=== PATIENT | male | born 1985 | race Caucasian/White ===

== ENCOUNTER → 2018-12-31 06:45 | Outpatient (CLI) | payer OTHER, SELFPAY ==
[2018-12-22 20:46] VITALS: BMI 44.8
--- NOTE | 2018-12-31 06:53 | CT_ITS ---
STUDY: CT ABDOMEN WITHOUT CONTRAST REASON FOR EXAM: Male, 33 years old. Intermittent stabbing and burning pain in periumbilical area. RADIATION DOSAGE (If Supplied By Facility): CTDIvol = ( 24.18 ) mGy, DLP = ( 957.23 ) mGycm TECHNIQUE: Transaxial images were obtained without intravenous contrast, and oral contrast. Sagittal and coronal images were reconstructed. Individualized dose optimization techniques were used for this CT. COMPARISON: None. FINDINGS: The visualized lung bases are unremarkable. The visualized portions of the heart are within normal limits. There are a few scattered punctate calcifications in the liver. Hepatic steatosis. Normal gallbladder and extrahepatic biliary system. There are multiple benign calcified granulomata of the spleen. Normal pancreas. Normal bilateral adrenal glands. Normal right kidney. Normal left kidney. Limited evaluation of solid organs without contrast. Limited evaluation of bowel without oral contrast. Normal visualized stomach. Normal small intestine. Normal colon. The appendix is visualized axial image 77, coronal image 78 and sagittal image 43 and appears normal. Normal abdominal aorta. Normal inferior vena cava. Normal retroperitoneum. No intra-abdominal free air. Small umbilical hernia containing fat. Normal abdominal wall. Mild degenerative changes of the thoracic spine. CT/Abdomen without IV Contrast IMPRESSION: No acute findings in the abdomen . No evidence of bowel obstruction. Fatty liver. Old granulomatous disease. Small umbilical hernia containing fat. Electronically Signed: Daryl Nguyen MD at 8:08 EDT , Service support ,
== END ==
PROVIDERS: Family Provider Nurse Practitioner; PCP Nurse Practitioner; Referring Provider Nurse Practitioner; Visit Provider Nurse Practitioner
DX: K43.9 Ventral hernia without obstruction or gangrene (principal); R10.33 Periumbilical pain
CPT/HCPCS: 74150

== ENCOUNTER → 2019-12-09 21:18 | Outpatient (CLI) | payer SELFPAY ==
[2019-12-09 20:05] VITALS: BMI 44.5
[2019-12-09 21:52] LABS: ALB/GLOB Ratio 1.1 RATIO (0.9-2.4); AST(SGOT) 33 U/L (15-37); Alanine Aminotransfer ALT/SGPT 82 U/L (16-61); Albumin, Serum 3.9 g/dL (3.2-5.0); Alkaline Phosphatase 72 U/L (45-117); Anion Gap 6 (5-15); BUN 16 mg/dL (7-18); BUN/Creat Ratio 13.4 RATIO (10-20); CRP, High Sensitivity Cardiac 8.43 mg/L; Calcium,Total 8.6 mg/dL (8.5-10.1); Chloride 104 mmol/L (98-107); Creatinine, Serum 1.19 mg/dL (0.70-1.30); EST Glomerular Filtration Rate 73 mL/min (>60); Est Glom Filt Rate - Afr Amer 89 mL/min (>60); Globulin 3.6 g/dL (2.2-4.2); Glucose 114 mg/dL (74-106); Potassium 3.7 mmol/L (3.5-5.1); Protein, Total 7.5 g/dL (6.4-8.2); Sodium Level 138 mmol/L (136-145)
== END ==
PROVIDERS: PCP Nurse Practitioner; Visit Provider Nurse Practitioner
DX: R07.9 Chest pain, unspecified (principal)
CPT/HCPCS: 80053; 84484; 86141

== ENCOUNTER 2019-12-14 10:45 | Observation (INO) | payer OTHER, SELFPAY ==
[2019-12-09 20:05] VITALS: BMI 44.5
[2019-12-14] VITALS (10 sets, daily range): BP systolic 122–160; BP diastolic 59–87; PULSE 55–80; RESP 16–20; TEMP 36.6–36.8; O2SAT 95–98; BMI 44.5; BMI 43.6
--- NOTE | 2019-12-14 11:01 | EKG12_ITS ---
Test Reason : SYNCOPE Blood Pressure : / mmHG Vent. Rate : 067 BPM Atrial Rate : 067 BPM P-R Int : 142 ms QRS Dur : 088 ms QT Int : 386 ms P-R-T Axes : 035 042 017 degrees QTc Int : 407 ms Normal sinus rhythm Normal ECG Confirmed by LILIANA ROSS ([id number]), website/blog editor BOBBI MANZANARES ([id number]) on 12/17/2019 10:30:13 AM Referred By: GIRMA Confirmed By:LILIANA ROSS
--- NOTE | 2019-12-14 11:01 | ED.VIS.GEN ---
History of Present Illness Chief Complaint: Syncope Narrative: This patient is a 34-year-old male who presents after a near syncopal episode. He has been having episodes of left-sided chest and arm pain. He saw his primary care provider. He had an EKG and laboratory studies with a negative troponin. He was referred to cardiology. These episodes of pain have been happening for about 2 weeks. Today he developed burning left arm pain as well as left-sided chest pain. He became very dizzy and had a near syncopal event. He became diaphoretic. He did feel slightly short of breath. He has been having nausea over the last couple of weeks. No vomiting. He is recovered from COVID-19 about 2 months ago. Patient denies history of diabetes, hypertension, hyperlipidemia, smoking. Past Medical History - Allergies and Home Meds Allergies/Adverse Reactions: Allergies No Known Allergies Allergy (Verified 12/14/19 10:48) Primary Care Physician: Priscilla Adams NP-C [Primary Care Provider] - Past Medical History: - - GERD Smoking Status: Never smoker Review of Systems All systems negative except as indicated General: Denies: Fever Eyes: Denies: Visual changes - bilaterally ENT: Denies: Bilateral ear pain Cardiovascular: Reports: Chest pain, - - Near syncope Respiratory: Reports: Dyspnea Gastrointestinal: Reports: Nausea Musculoskeletal: Reports: Extremity Pain. Denies: Myalgias, Arthralgias Skin: Denies: Rash Neurological: Denies: Headache Allergy: Denies: Uticaria Physical Exam Vital Signs/Narrative: Vital Signs Temp Pulse Resp BP Pulse Ox 12/14/19 10:46 97.8 F 71 20 H 160/87 H 97 Inital Vital Signs reviewed: Yes General: Well nourished Head: Normocephalic Eyes: EOMI ENT: Moist mucous membranes Neck: Supple Cardiovascular: Regular rate, Regular rhythm Respiratory: No distress, CTA bilaterally Abdomen: Soft, Nontender Back: Nontender Extremities: Nontender Skin: Normal color Neurological: Alert Psychological: Normal affect Diagnostic/Tx/Re-eval Impressions Chest X-Ray 12/14/19 11:40 IMPRESSION: Normal x-ray examination of the chest. Electronically Signed: Brady Tomas, at 11:54 EDT , Service support , 12/14/19 11:40 Chest PA and Lateral [RAD] Stat Laboratory Results 12/14/19 12/14/19 11:25 11:25 WBC 8.7 RBC 5.03 Hgb 15.3 Hct 44.2 MCV 87.9 MCH 30.4 MCHC 34.6 RDW Std Deviation 40.0 RDW Coeff of Richard 12.5 Plt Count 246 MPV 11.0 Immature Gran % (Auto) 0.200 Neut % (Auto) 68.4 Lymph % (Auto) 21.9 [place] % (Auto) 7.7 Eos % (Auto) 1.3 Baso % (Auto) 0.5 Absolute Neuts (auto) 6.0 Absolute Lymphs (auto) 1.91 Nucleated RBC % 0 Sodium 141 Potassium 3.9 Chloride 110 H Carbon Dioxide 27.0 Anion Gap 4 L BUN 11 Creatinine 1.00 Estim Creat Clear Calc 98.80 Est GFR (MDRD) Af Amer 109 Est GFR (MDRD) Non-Af 90 BUN/Creatinine Ratio 11.0 Glucose 98 Calcium 8.6 Troponin I < 0.015 - Medical Decision Making EKG shows normal sinus rhythm at a rate of 67 with no acute ischemic changes. Labs are unremarkable. Chest x-ray shows no acute process. Heart score is 3. However I am concerned about the patient's progressive symptoms. He has already begun an outpatient work-up and been referred to cardiology. Therefore I felt the most appropriate course of action was hospital observation for serial EKGs, troponins, stress testing. Patient was discussed with the hospitalist who agrees to place in observation. ED Disposition - Plan for ED Patient: Disposition: Acute Care Hospital [facility] Diagnosis: Chest pain, Near syncope Referrals: Priscilla Adams, YUAN-C [Primary Care Provider] -
--- NOTE | 2019-12-14 11:04 | NURSING ---
NO OLD EKGS
[2019-12-14 11:33] LABS: Absolute Lymphocyte Count 1.91 X10^3/uL (0.83-4.51); Basophil# 0.04 X10^3/uL; Basophil% 0.5 % (0-1); Eosinophil# 0.11 X10^3/uL; Eosinophils% 1.3 % (0-5); Hematocrit 44.2 % (40-54); Hemoglobin 15.3 g/dL (13.0-16.5); Lymphocyte # 1.91 X10^3/ul (4.0); Lymphocyte % 21.9 % (19-41); Mean Corp Hgb Conc 34.6 g/dL (32-36); Mean Corpuscular Hgb 30.4 pg (27.0-32.0); Mean Corpuscular Volume 87.9 fL (80-94); Monocyte# 0.67 X10^3/uL; Monocyte% 7.7 % (0-10); NRBC Flagged by Analyzer 0 % (0-5); Neutrophil # 5.97 X10^3/uL (2.7-7.7); Neutrophil % 68.4 % (47-70); Platelet Count 246 K/mm3 (150-450); RBC Distribution Width CV 12.5 % (11.6-14.6); Red Blood Count 5.03 M/mm3 (4.6-6.2); White Blood Count 8.7 K/mm3 (4.4-11.0)
[2019-12-14] MEDS: Aspirin 81 MG TAB.CHEW 324 MG PO (11:37)
[2019-12-14] MEDS: 0.9% Normal Saline 1,000 ML 1000 ML IV (11:39)
--- NOTE | 2019-12-14 11:40 | RAD_ITS ---
STUDY: X-RAY CHEST REASON FOR EXAM: Male, 34 years old. Pt felt like he was going to pass out and became diaphoretic. Pt also having l arm pain. Pt has cardiology followups soon TECHNIQUE: PA and lateral views of the chest. COMPARISON: None. FINDINGS: EKG electrodes are seen. The lungs are clear and expanded. There is no demonstrated pleural abnormality. Normal size heart. Normal mediastinum and miley. Normal visualized pulmonary arteries. Normal visualized aortic arch and descending thoracic aorta. Normal visualized thoracic spine. Normal visualized ribs, clavicles, and shoulders. There is no demonstrated abnormality of the visualized soft tissue structures of the upper abdomen. RAD/Chest PA and Lateral IMPRESSION: Normal x-ray examination of the chest. Electronically Signed: Brady Tomas, at 11:54 EDT , Service support ,
[2019-12-14 11:53] LABS: Anion Gap 4 (5-15); BUN 11 mg/dL (7-18); Calcium,Total 8.6 mg/dL (8.5-10.1); Chloride 110 mmol/L (98-107); EST Glomerular Filtration Rate 90 mL/min (>60); Est Glom Filt Rate - Afr Amer 109 mL/min (>60); Glucose 98 mg/dL (74-106); Potassium 3.9 mmol/L (3.5-5.1); Sodium Level 141 mmol/L (136-145)
--- NOTE | 2019-12-14 14:21 | PCM.HP.STD ---
Problem List (1) Atypical chest pain Status: Acute (2) Near syncope Status: Acute History of Present Illness Date of Admission: 12/14/19 Chief Complaint: Dizziness, near syncope. The patient is a 34 year old M with no significant past medical history presented to the emergency department because of dizziness. 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 He denied aggravating or relieving factors. Almost at the same time, he started having vague left upper chest pain, dull pain, mild, associated with same pain on the left arm and the whole episode of being dizzy and having this chest pain lasted for about 2 minutes. Upon arrival to the ED, he had no more symptoms. Few days ago, he saw his PCP, had an EKG and troponin which were unremarkable and he was referred to cardiology as outpatient. Patient was diagnosed COVID- beginning of October and he was recovered. Patient denied syncope or palpitation. In the emergency department, his blood pressure was slight elevated, other vital signs were stable. Routine blood work was unremarkable. EKG revealed normal sinus rhythm, normal [place] interval, normal QRS, no acute ischemic changes. Troponin is negative. Chest x-ray showed no acute findings. He is being admitted for near syncope and atypical chest pain for evaluation. Past Medical History Medical History: Medical History (Last Updated 01/07/19 @ 08:50 by Citlali Proctor) GERD (gastroesophageal reflux disease) K21.9 Umbilical hernia K42.9 Chronic back pain M54.9, G89.29 Allergies No Known Allergies Allergy (Verified 12/14/19 10:48) Home Medications: Ambulatory Orders Medication Instructions Recorded Aspirin [Aspirin, Baby] 81 mg PO DAILY@0800 12/14/19 Surgical History: Surgical History (Last Updated 01/07/19 @ 08:50 by Citlali Proctor) No pertinent past surgical history Z78.9 Surgical History: no surgical history Psychiatric History: No pertinent psych hx Lives: Spouse/ Significant Other Smoking Status: Never smoker Tobacco Use: Chew Alcohol: Occasional Drugs: None - *Family History Maternal Family History: Family History (Last Reviewed 12/14/19 @ 14:[address] Emely Dixon MD) Mother Myocardial infarction Heart disease Grandfather Sudden cardiac Heart disease Father Seizures Other Asthma Hypertension History Items: Heart Disease - Pacemaker, ICD. She had her first heart problem at the age of 50. Had no PCI or CABG. Paternal Family History: Family History (Last Reviewed 12/14/19 @ 14:[address] Emely Dixon MD) Mother Myocardial infarction Heart disease Grandfather Sudden cardiac Heart disease Father Seizures Other Asthma Hypertension History Items: Hypertension Review of Systems Constitutional: Denies: Anorexia, Chills, Fever, Weakness Eyes: Denies: Blurred vision, Double vision, Drainage HEENT: Denies: Difficulty Hearing, Ear Pain, Eye Pain, Nasal Congestion, Sore Throat Cardiovascular: Reports: Chest Pain, Light Headedness. Denies: Edema, Heaviness, Orthopnea, Paroxysmal Noc. Dyspnea, Syncope Respiratory: Reports: Shortness of Breath. Denies: Cough, Pleuritic Pain, Sputum production, Wheezing Gastrointestinal: Reports: Nausea. Denies: Abdominal Pain, Constipation, Diarrhea, Vomiting Genitourinary: Denies: Dysuria, Frequency, Hematuria Musculoskeletal: Denies: Arm Pain, Back Pain, Foot Pain Skin: Denies: Dryness, Rash Neurological: Denies: Balance problems, Double vision, Change in Speech, Confusion, Headaches, Incoordination, Numbness Psychiatric: Denies: Anxiety, Depression Endocrine: Denies: Change in Body Habitus, Polydipsia, Polyuria VTE Information - Inpt Only VTE Present on Admission: No VTE Mechan Device Prophylaxis: None VTE Pharm Prophylaxis ordered?: No Patient Problems: Active and Suspected Problems (Last Updated 01/07/19 @ 08:50 by Citlali Proctor) Atypical chest pain (Acute) Near syncope (Acute) - Physical Exam Vitals/I&O's: Vital Signs Temp Pulse Resp BP Pulse Ox 97.8 F 61 18 140/86 H 98 12/14/19 10:46 12/14/19 12:45 12/14/19 12:45 12/14/19 12:45 12/14/19 12:45 Oxygen Delivery Method Room Air Weight: 293 lb Body Mass Index (BMI) 44.5 General: Alert, Oriented x3, Cooperative, No apparent distress HEENT: Atraumatic, PERRLA, EOMI, Normocephalic Oral: Moist Mucosa, No Gingival or Mucosal Lesions/ Ulcerations Neck: Supple, No JVD, Negative Carotid Bruits, Trachea Midline, Thyroid Normal Size and Texture Lungs: Clear to auscultation, Normal air movement, No rhonchi, No wheeze, No rales Cardiovascular: Regular rate, Regular Rhythm, Normal S1, Normal S2, PMI Normal Abdomen: Bowel Sounds Present, Soft, Non Tender, Non-Distended, No Hepato-splenomegaly, Obese Extremities: No clubbing, No cyanosis, No edema Skin: No rashes, No breakdown Lymphatic: No Cervical, Supraclavicular, or Inguinal Adenopathy Neurological: Cranial nerves II-XII grossly intact, Motor Exam 5/5 strength throughout Psych/Mental Status: Normal Affect, Appropriate, Alert and oriented to time, place, person, mood and affect Laboratory Results 12/14/19 11:25: WBC 8.7, RBC 5.03, Hgb 15.3, Hct 44.2, MCV 87.9, MCH 30.4, MCHC 34.6, RDW Std Deviation 40.0, RDW Coeff of Richard 12.5, Plt Count 246, MPV 11.0, Immature Gran % (Auto) 0.200, Neut % (Auto) 68.4, Lymph % (Auto) 21.9, Craig % (Auto) 7.7, Eos % (Auto) 1.3, Baso % (Auto) 0.5, Absolute Neuts (auto) 6.0, Absolute Lymphs (auto) 1.91, Nucleated RBC % 0 12/14/19 11:25: Sodium 141, Potassium 3.9, Chloride 110 H, Carbon Dioxide 27.0, Anion Gap 4 L, BUN 11, Creatinine 1.00, Estim Creat Clear Calc 98.80, Est GFR (MDRD) Af Amer 109, Est GFR (MDRD) Non-Af 90, BUN/Creatinine Ratio 11.0, Glucose 98, Calcium 8.6, Troponin I < 0.015 Clinical Impression(s) from Imaging Studies Chest X-Ray 12/14/19 11:40 IMPRESSION: Normal x-ray examination of the chest. Electronically Signed: Brady Tomas, at 11:54 EDT , Service support , Assessment/Plan All Active Problems (Last Updated 01/07/19 @ 08:50 by Citlali Proctor) Atypical chest pain (Acute) Near syncope (Acute) This is a 34 years old male patient presented to the emergency room because of dizziness, near syncopal episode as well as atypical chest pain and he is being admitted for evaluation. #1 near syncope/atypical chest pain: Initial EKG and troponin were unremarkable. Chest x-ray showed no acute findings. Patient mentioned that his mother had pacemaker and ICD at age of 50, questionable [place] as well. Father with history of hypertension. Vital signs are stable except slight elevated blood pressure. Routine blood work was unremarkable. Plan: Admit to PCU observation, cardiac monitoring, serial cardiac enzymes, lipid profile, TSH, nuclear stress test if cardiac enzymes are negative, baby aspirin, Tylenol PRN, 2D echocardiogram to rule out possible viral myocarditis/cardiomyopathy given recent history of COVID-19. #2 recent history of COVID-19: This was back on October,. Recovered, denies any respiratory symptoms. Chest x-ray reviewed, no acute findings, afebrile, no leukocytosis. Pulse ox is maintained on room air. #3 DVT prophylaxis: Low risk patient, no prophylaxis indicated. This note was generated with Nexus Dx dictation software. It may contain incorrect words, spelling, and punctuation that were not noted in checking the note before signing. OBSV E&M: [id number] Initial observation care L3
--- NOTE | 2019-12-14 14:42 | ECHOCS_ITS ---
Reason For Study: Syncope Procedure This was a 2D Doppler, Color Flow transthoracic echocardiogram. The study was technically difficult. Exam performed portable in patient room. Left Ventricle Normal size and thickness. The estimated ejection fraction is 65 %. Normal diastology for age. No regional wall motion abnormalities noted. Right Ventricle Normal size and thickness. Normal systolic function. Atria Normal left atrium. Normal right atrium. Normal atrial septum. Mitral Valve The mitral valve is structurally normal. No prolapse or stenosis seen. Tricuspid Valve Normal tricuspid valve. Trivial tricuspid valve insufficiency. Right ventricular systolic pressure estimated to be 29 mmHg. Aortic Valve Normal aortic valve. Trisinus/trileaflet aortic valve. Pulmonic Valve The pulmonic valve is not well visualized. Great Vessels Normal aortic root. Normal arch. Normal inferior vena cava. Inferior vena cava collapse with sniff. Pericardium/Pleural No pericardial effusion. Medication Diluted definity 3ml given slow IV push to enhance endocardial definition. MMode/2D Measurements & Calculations LVIDd: 4.8 cm IVSd: 1.0 cm Ao root diam: 3.0 cm LVIDs: 3.1 cm LVPWd: 0.97 cm FS: 36.0 % LAV(MOD-bp): 54.0 ml LA A4 area: 18.2 cm2 LA dimension(2D): 4.2 cm LAV(MOD-bp) Indexed: 22.7 ml/m2 LAV(MOD-sp2): 62.4 ml LAV(MOD-sp4): 46.0 ml RA A4 area: 18.6 cm2 Doppler Measurements & Calculations MV E max angel: 63.9 cm/sec Lat Peak E' Angel: 13.7 cm/sec Med Peak E' Angel: 9.2 cm/sec MV A max angel: 59.7 cm/sec E/E' lat: 4.7 E/E' med: 6.9 MV E/A: 1.1 Ao V2 max: 108.8 cm/sec LV V1 max: 88.2 cm/sec PA V2 max: 125.0 cm/sec Ao max P.7 mmHg LV V1 max P.1 mmHg TR max angel: 243.5 cm/sec TR max P.7 mmHg Interpretation Summary The estimated ejection fraction is 65 %. Normal diastology for age. Trivial tricuspid valve insufficiency. Right ventricular systolic pressure estimated to be 29 mmHg. The study was technically difficult. Contrast injection was performed. There is no comparison study available. Ordering Physician: Emely Dixon Referring Physician: Priscilla Adams Performed By: Clara Castañeda RDCS
--- NOTE | 2019-12-14 15:10 | EKG12_ITS ---
Test Reason : ASHELFAH Blood Pressure : / mmHG Vent. Rate : 061 BPM Atrial Rate : 061 BPM P-R Int : 144 ms QRS Dur : 088 ms QT Int : 396 ms P-R-T Axes : 033 054 023 degrees QTc Int : 398 ms Normal sinus rhythm with sinus arrhythmia Normal ECG When compared with ECG of 14-DEC-2019 11:10, MANUAL COMPARISON REQUIRED, DATA IS UNCONFIRMED Confirmed by LILIANA ROSS ([id number]), food editor BOBBI MANZANARES ([id number]) on 12/17/2019 10:36:11 AM Referred By: JD Confirmed By:LILIANA ROSS
[2019-12-14 15:57] LABS: Cholesterol 190 mg/dL (200); High Density Lipoprotein 26 mg/dL; Thyroid Stim Hormone (TSH) 1.48 uIU/mL (0.358-3.74); Triglycerides 124 mg/dL; Very Low Density Lipoprotein 25 mg/dL (5-40)
[2019-12-15] VITALS (7 sets, daily range): BP systolic 123–147; BP diastolic 65–85; PULSE 53–83; RESP 16; TEMP 36.5–36.8; O2SAT 97–100
[2019-12-15] MEDS: Aspirin 81 MG TAB.CHEW PO (05:36)
--- NOTE | 2019-12-15 05:55 | EKG12_ITS ---
Test Reason : AM EKG Blood Pressure : / mmHG Vent. Rate : 066 BPM Atrial Rate : 066 BPM P-R Int : 154 ms QRS Dur : 084 ms QT Int : 390 ms P-R-T Axes : 042 049 030 degrees QTc Int : 408 ms Normal sinus rhythm with sinus arrhythmia Normal ECG When compared with ECG of 14-DEC-2019 15:28, MANUAL COMPARISON REQUIRED, DATA IS UNCONFIRMED Confirmed by LILIANA ROSS ([id number]), assistant editor BOBBI MANZANARES ([id number]) on 12/17/2019 10:37:37 AM Referred By: JOSÉ Confirmed By:LILIANA ROSS
--- NOTE | 2019-12-15 12:46 | CHAPLAIN ---
Type of Pastoral Visit _x__ Initial Visit ___ Follow-up Visit ___ On-call Visit ___ General Patient Visit ___ Spiritual Assessment ___ Family Conference ___ Bereavement ___ Rapid Response ___ Code Blue ___ Other (describe below) Pastoral Care Referral From _x__ Patient ___ Family ___ Nurse ___ Physician ___ Liquid Compounder ___ Aoc Director Combat Operations Officer ___ Other (describe below) Sacrament/Intervention _x__ Active listening ___ Anointing ___ Scientologist ___ Bereavement ___ Communion ___ Vale exploration ___ ___ Life review ___ Prayer ___ Reconciliation ___ Sacrament of Sick _x__ Supportive presence ___ Wedding ___ Other (describe below) Pastoral Comments
--- NOTE | 2019-12-15 13:56 | DCINST_ITS ---
- Discharge Diagnoses Current Active Problems: Current Active and Chronic Problems (Last Updated 12/14/19 @ 20:44 by Ariana Ch) Chest pain (Acute) Atypical chest pain (Acute) Near syncope (Acute) You will use the following diet at home:: No restrictions Your food should be the consistency of: Regular Your liquids should be the consistency of: Regular/Thin Discharge Activity: Return to Normal Activity Allergies/Adverse Reactions: Allergies No Known Allergies Allergy (Verified 12/14/19 10:48) Medications to take at Discharge Aspirin [Aspirin, Baby] 81 mg PO DAILY@0800 12/14/19 Primary Care Physician: Priscilla Adams NP-C [Primary Care Provider] - Please follow up with your Primary Care Physician in: 1-2 weeks Test Results: Test results from this visit will be discussed in further detail at your follow- up appointment, if applicable. Proposed Discharge Date: 12/15/19
--- NOTE | 2019-12-15 13:56 | PCM.DC.SUM ---
Discharge Date and Diagnosis - Problem List Patient Problems: Active and Suspected Problems (Last Updated 12/14/19 @ 20:44 by Ariana Ch) Chest pain (Acute) Atypical chest pain (Acute) Near syncope (Acute) Date of Admission: 12/14/19 Date of Discharge: 12/15/19 - Primary Discharge Diagnosis Acute Problems: Active Problems (Last Updated 12/14/19 @ 20:44 by Ariana Ch) Chest pain - musculoskeletal Hx GERD, Morbid obesity, Chronic back pain. Hospital Course and Treatment Imaging Results: 12/15/19 05:55 Nuclear Stress Test - Treadmil [NM] Routine Negative for ischemia. RAD/Chest PA and Lateral IMPRESSION: Normal x-ray examination of the chest. 2D TTE: Interpretation Summary The estimated ejection fraction is 65 %. Normal diastology for age. Trivial tricuspid valve insufficiency. Right ventricular systolic pressure estimated to be 29 mmHg. The study was technically difficult. Contrast injection was performed. There is no comparison study available. Operations: None Procedures: 2-D Echocardiogram, Stress test Summary of Care Provided: Hospital Course: The patient is a 34 year old M with pmhx of chronic back pain, GERD, umbilical hernia, morbid obesity who presents to the ER with c/o chest pain and near syncope. 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 He became dizzy, unsteady, had severe left sided chest pain left upper chest area. He did not lose consciousness. The duration was about 2 minutes. It did not recur. He came to the ER and had negative CXR, negative EKG, negative troponin. He was admitted to the PCU on tele. No events on tele. Trop neg x 3. TSh normal. Stress test the following day was negative. Echo showed EF 65%, RVSP 29 mmHg, tvirial TVI, no regional wall abnormalities. He had no further symptoms. He was felt to have had musculoskeletal pain. He was discharge home in stable condition. This patient was seen by Nicolas Sandoval Pa-C under the supervision of Dr. Myles. [] Patient Problems: Active and Suspected Problems (Last Updated 12/14/19 @ 20:44 by Ariana Ch) Chest pain (Acute) Atypical chest pain (Acute) Near syncope (Acute) - Physical Exam Vitals/I&O's: Vital Signs Temp Pulse Resp BP Pulse Ox 97.7 F L 69 16 125/85 H 97 12/15/19 11:04 12/15/19 11:04 12/15/19 11:04 12/15/19 11:04 12/15/19 11:04 Oxygen Delivery Method Room Air Weight: 286 lb 13.142 oz Body Mass Index (BMI) 43.6 Orthostatic Vital Signs Start: 12/14/19 14:57 Freq: q24h Status: Active Protocol: Activity Type Activity Date Activity User E-Sign Co-Sign Detail Recorded Client Recorded Date Recorded By Document 12/15/19 05:32 CS [id number] 12/15/19 05:34 CS 12/15/19 05:32 Orthostatic Vitals Standing -Blood Pressure (90/60-120/80 mm Hg) 132/82 H -Extremity Use Left Arm -Pulse Rate (60-100 beats/min) 80 Sitting -Blood Pressure (90/60-120/80 mm Hg) 129/81 H -Extremity Use Left Arm -Pulse Rate (60-100 beats/min) 78 Lying -Blood Pressure (90/60-120/80 mm Hg) 133/74 H -Extremity Use Left Arm -Pulse Rate (60-100 beats/min) 63 Intake and Output for Last 24 Hours 12/13/19 12/14/19 12/15/19 23:59 23:59 23:59 Intake Total 1780 / 1780 500 / 500 Balance 1780 / 1780 500 / 500 General: Alert, Oriented x3, Cooperative HEENT: Atraumatic, PERRLA, EOMI, Normocephalic Neck: Supple, No JVD, Negative Carotid Bruits Lungs: Clear to auscultation, Normal air movement Cardiovascular: Regular rate, No murmurs Abdomen: Bowel Sounds Present, Soft, Non Tender Extremities: No edema, Capillary Refill Less than 3 Seconds Skin: No rashes, No breakdown Musculoskeletal: No Tenderness to Palpation of Joints or Extremities Neurological: Cranial nerves II-XII grossly intact Psych/Mental Status: Normal Affect, Appropriate Laboratory Results 12/14/19 15:08: Troponin I < 0.015, Triglycerides 124, Cholesterol 190, LDL Cholesterol 139 H, VLDL Cholesterol 25, HDL Cholesterol 26 L, TSH 1.48 12/14/19 17:45: Troponin I < 0.015 Current Medications Acetaminophen (Tylenol) 650 mg PO Q6H PRN PRN PRN Reason: Pain Score 1-10/Temp > 100.7 F Aspirin (Aspirin, Baby) 81 mg PO DAILY@0800 ROSIE Last Admin: 12/15/19 05:36 Dose: 81 mg Documented by: Sodium Chloride () 250 mls @ 15 mls/hr IV .[id number] PRN PRN Reason: Saline Flush Sodium Chloride () 250 mls @ 15 mls/hr IV .[id number] PRN PRN Reason: Additional IVPB Infusion Ondansetron HCl (Zofran) 4 mg IV Q8H PRN PRN PRN Reason: NAUSEA/VOMITING Sodium Chloride () 10 - 40 ml IV UD PRN PRN Reason: SALINE FLUSH Zolpidem Tartrate (Ambien (Generic)) 5 mg PO QHS PRN PRN PRN Reason: INSOMNIA Discharge Diet: No Restrictions Discharge Activity: Return to Normal Activity Home Medications: Medications to take at Discharge Aspirin [Aspirin, Baby] 81 mg PO DAILY@0800 12/14/19 Primary Care Physician: Priscilla Adams NP-C [Primary Care Provider] - Please follow up with your Primary Care Physician in: 1-2 weeks Disposition: Home Minutes spent on discharge:: 35 Patient Condition:: Stable Medical Necessity - Tobacco Use Smoking Status: Never smoker Tobacco Use: Chew Meaningful Use Info Meaningful Use Diagnoses (Choose all that apply): None applicable
--- NOTE | 2019-12-15 14:26 | PHA.DC.MR ---
Pharmacy Service has performed discharge medication reconciliation for this patient. The patient's discharge medication list was reviewed for discrepancies and discrepancies were resolved. Home Medications Aspirin [Aspirin, Baby] 81 mg PO DAILY@0800 12/14/19
--- NOTE | 2019-12-15 17:51 | STRESSREP ---
Stress Test Report Exercise myocardial perfusion stress test. 34-year-old man with a history of chest pain. Stress protocol: Resting EKG demonstrates normal sinus rhythm with a rate of 61 bpm normal intervals are noted resting blood pressure is 138/94 mmHg. The patient exercised according to regular Mat protocol for a total duration of 9 minutes. The maximum heart rate attained was 169 bpm which was 91% of max impacted heart rate the maximum workload was 10.4 metabolic equivalents. At rest there were no ST or T wave changes noted to suggest abnormal flow reserve at peak exercise no ST or T wave changes were noted to suggest abnormal flow reserve. The resting blood pressure was 1 and 38/94 with a peak blood pressure of 190/94 mmHg rate-pressure product was 31,500. Myocardial perfusion protocol. 14.9 mCi of technetium 99m sestamibi was injected at rest. Patient exercised according to regular Mat protocol for 9 minutes at peak exercise 44.6 mCi of technetium 99m sestamibi was injected stress images were obtained stress and rest images were reconstructed and compared in the short axis vertical long horizontal long axis. Gated images were also obtained Perfusion SPECT analysis: Review of the stress images demonstrate normal uptake of tracer noted in all areas of the myocardium. The resting images similar demonstrate normal uptake of tracer noted in all areas of the myocardium. No areas of reversibility were noted suggest ischemia no previous infarct was noted. Gated SPECT analysis: The gated ejection fraction was 60%. Conclusion: Normal exercise myocardial perfusion stress test with no evidence of ischemia. Preserved ejection fraction.
== END 2019-12-15 13:56 | disposition home or self-care (01) ==
LOC: ED 14:10 → PCU 14:24
PROVIDERS: Admitting Provider Hospitalist; Emergency Provider Emergency Medicine; PCP Nurse Practitioner; Visit Provider Internal Medicine
DX: R55 Syncope and collapse (principal); R07.89 Other chest pain; E66.01 Morbid (severe) obesity due to excess calories; K21.9 Gastro-esophageal reflux disease without esophagitis; Z86.19 Personal history of other infectious and parasitic diseases; Z79.82 Long term (current) use of aspirin; Z82.49 Family history of ischemic heart disease and other diseases of the circulatory system; Z68.41 Body mass index [BMI] 40.0-44.9, adult
CPT/HCPCS: 36415; 71046; 78452; 80048; 80061; 84443; 84484; 85025; 93005; 93017; 93306; 96360; 96361; 99218; 99285; A9500; J7030; Q9957; A4216; C8929; G0378